=== PATIENT | male | born 1985 | race Caucasian/White ===

== ENCOUNTER 2017-08-07 10:41 | Day surgery (SDC) | payer BC ==
[~2017-08-07 10:41] MED LIST: Lactated Ringers 1,000 ML IV SCH
--- NOTE | 2017-08-07 11:53 | PCM.PREANE ---
Preanesthetic Assessment - Anesthesia/Transfusion/Family Hx Anesthesia History: Prior Anesthesia Without Reaction Family History of Anesthesia Reaction: No Transfusion History: No Prior Transfusion(s) Intubation History: Unknown - Review of Systems General: No Symptoms Pulmonary: No Symptoms Cardiovascular: No Symptoms Gastrointestinal: Difficulty Swallowing Neurological: No Symptoms Other: Reports: None - Physical Assessment NPO Status Date: 08/06/17 NPO Status Time: 18:00 O2 Sat by Pulse Oximetry: 97 Respiratory Rate: 16 Vital Signs: Last Vital Signs Temp 37.2 C 08/07/17 11:14 Pulse 60 08/07/17 11:14 Resp 16 08/07/17 11:14 BP 121/72 08/07/17 11:14 Pulse Ox 97 08/07/17 11:14 Height: 1.75 m Weight: 78.018 kg ASA Class: 2 Mental Status: Alert & Oriented x3 Airway Class: Mallampati = 2 Dentition: Reports: Normal Dentition Thyro-Mental Finger Breadths: 3 Mouth Opening Finger Breadths: 3 ROM/Head Extension: Full Lungs: Clear to Auscultation, Normal Respiratory Effort Cardiovascular: Regular Rate, Regular Rhythm - Allergies Allergies/Adverse Reactions: Allergies Allergy/AdvReac Type Severity Reaction Status Date / Time No Known Allergies Allergy Verified 08/05/17 13:15 - Blood Blood Available: No - Anesthesia Plan Pre-Op Medication Ordered: None - Acknowledgements Anesthesia Type Planned: MAC Pt an Appropriate Candidate for the Planned Anesthesia: Yes Alternatives and Risks of Anesthesia Discussed w Pt/Guardian: Yes Pt/Guardian Understands and Agrees with Anesthesia Plan: Yes PreAnesthesia Questionnaire HEENT History: Reports: Other (See Below) Other HEENT History: wears glasses/contacts Gastrointestinal History: Reports: Other (See Below) Other Gastrointestinal History: occasional heartburn, food sticking in his esophagus on occasion - Past Surgical History Head Surgeries/Procedures: Reports: None HEENT Surgical History: Reports: Tonsillectomy GI Surgical History: Reports: Other (See Below) Other GI Surgeries/Procedures: hemorrhoid photocoagulation, January and Jul 2015 "heat probe" - SUBSTANCE USE Smoking Status *Q: Never Smoker Tobacco Use Within Last Twelve Months: Other (See Below) (chew tobacco for 18 years, quit 2 years ago) Recreational Drug Use History: No - HOME MEDS Home Medications: Home Meds Aspirin [Bland Aspirin] 81 mg PO DAILY 08/05/17 [History] Biotin 2,500 mcg PO ASDIRECTED 08/05/17 [History] Docusate Sodium 2 tab PO DAILY 08/05/17 [History] Gluc 2KCl/Chondr/Jeevan Hy/Hy Ac [Glucosamine & Chondroitin Cap] 1 tab PO DAILY [History] Krill/[place]-3/Dha/Epa/Lipids [Krill Oil 300 mg Softgel] 350 mg PO DAILY [History] Lactobacillus Acidophilus [Acidophilus] 1 tab PO DAILY 08/05/17 [History] Lysine HCl [l-Lysine] 500 mg PO DAILY 08/05/17 [History] - CURRENT (IN HOUSE) MEDS Current Meds: Current Medications Lactated Ringer's (Ringers, Lactated) 1,000 mls @ 125 mls/hr IV ASDIRECTED [facility] Last Admin: 08/07/17 11:16 Dose: 125 mls/hr
[2017-08-07] MEDS ORDERED: Propofol 200 MG/20 ML SDV ONE (13:13)
[2017-08-07] MEDS ORDERED: Lidocaine 2% 5 ML SDV ONE (13:13)
[2017-08-07] MEDS ORDERED: Midazolam 1 MG/ML 2 ML SDV ONE (13:13)
[2017-08-07] MEDS ORDERED: Lactated Ringers 1,000 ML IV SCH (14:00)
--- NOTE | 2017-08-07 14:01 | PCM.OPNOTE ---
- General Post-Op/Procedure Note Date of Surgery/Procedure: 08/07/17 Operative Procedure(s): Esophagogastroduodenoscopy with gastric biopsies Pre Op Diagnosis: Progressive dysphagia Post-Op Diagnosis: Mild gastritis. Small hiatal hernia. Anesthesia Technique: MAC (ASA II) Primary Surgeon: Chemo Sue Condition: Good Free Text/Narrative:: Dictation [id number] CPT CODE [id number]
--- NOTE | 2017-08-07 14:16 | OR ---
SURGEON: Chemo Sue M.D. DATE OF PROCEDURE: 08/07/2017 OPERATION PERFORMED: Esophagogastroduodenoscopy with biopsy. ANESTHESIA: MAC. ASA CLASSIFICATION: II. PREOPERATIVE DIAGNOSIS: Progressive dysphagia. POSTOPERATIVE DIAGNOSES: 1. Small hiatal hernia. 2. Mild gastritis. DESCRIPTION OF PROCEDURE: The patient was taken to the endoscopy room and positioned on the endoscopy table in the supine position. Time-out was called for appropriate identification of the patient and procedure. Monitored anesthesia care was provided. The bite block was placed between the patient's teeth. The gastroscope was inserted through the bite block into the oropharynx and advanced without difficulty through the esophagus and stomach into the duodenum where examination was carried out in a retrograde fashion. The duodenum shows no acute inflammatory changes or ulcerations. The stomach does show mild-to- moderate gastritis. Antral biopsies were obtained to look for the presence of Helicobacter pylori. The gastroscope was retroflexed to visualize the proximal stomach. The patient does have a small hiatal hernia that can be seen both from below and above. No ulcerations or tumors were noted along the greater or lesser curvatures. No masses were noted in the cardia of the stomach in a retroflexed position. The gastroscope was then withdrawn to the GE junction where again hiatal hernia was noted and photographed. The GE junction shows no acute inflammatory changes or ulcerations. The esophagus demonstrated good contractility. No mid or proximal lesions were seen. The vocal cords were visualized as the scope was withdrawn and noted to move symmetrically. The gastroscope was then removed with the patient having tolerated the procedure well. He was taken to recovery room in stable condition. MATTHEW / ELICEO /[id number]
--- NOTE | 2017-08-07 15:24 | PCM48HPAN ---
Post Anesthesia Note - EVALUATION WITHIN 48HRS OF ANESTHETIC Vital Signs in Normal Range: Yes Patient Participated in Evaluation: Yes Respiratory Function Stable: Yes Airway Patent: Yes Cardiovascular Function Stable: Yes Hydration Status Stable: Yes Pain Control Satisfactory: Yes Nausea and Vomiting Control Satisfactory: Yes Mental Status Recovered: Yes
== END 2017-08-07 14:30 | disposition home or self-care (01) ==
LOC: MW.SDS 10:41
PROVIDERS: ATTEND Surgery
DX: K29.50 Unspecified chronic gastritis without bleeding (principal); K44.9 Diaphragmatic hernia without obstruction or gangrene; Z98.890 Other specified postprocedural states; Z87.891 Personal history of nicotine dependence; Z79.82 Long term (current) use of aspirin; Z79.899 Other long term (current) drug therapy; Z83.3 Family history of diabetes mellitus; Z82.49 Family history of ischemic heart disease and other diseases of the circulatory system
CPT/HCPCS: 43239; J2250; J7120; 88305; 88312; J2704